=== PATIENT | male | born 1930 | race Native Hawaiian/Other Pacific Islander ===

== ENCOUNTER 2016-09-30 21:56 | Outpatient (CLI) | payer OTHER, BC ==
[2016-09-30] MEDS ORDERED: AMLO2.5T PO (22:18)
[2016-09-30] MEDS ORDERED: PANT40TA PO (22:18)
[2016-09-30] MEDS ORDERED: TIROSINT88 MCG PO (22:19)
[2016-09-30] MEDS ORDERED: CELE200C2 PO (22:19)
[2016-09-30] MEDS ORDERED: PLAVIX75 MG PO (22:19)
[2016-09-30] MEDS ORDERED: AMBIEN5 MG PO (22:20)
== END 2016-09-30 22:04 | disposition short-term general hospital (02) ==
LOC: AMB 21:56
DX: R41.82 Altered mental status, unspecified (principal); I10 Essential (primary) hypertension; R53.1 Weakness
CPT/HCPCS: A0425; A0429

== ENCOUNTER 2016-09-30 22:08 | Observation (INO) | payer OTHER, BC ==
[~2016-09-30] VITALS: Ht 172.7 cm; Wt 89.1 kg
[2016-09-30] MEDS ORDERED: PANT40TA PO (22:18)
[2016-09-30] MEDS ORDERED: AMLO2.5T PO (22:18)
[2016-09-30] MEDS ORDERED: CELE200C2 PO (22:19)
[2016-09-30] MEDS ORDERED: TIROSINT88 MCG PO (22:19)
[2016-09-30] MEDS ORDERED: PLAVIX75 MG PO (22:19)
[2016-09-30] MEDS ORDERED: AMBIEN5 MG PO (22:20)
[2016-09-30 22:32] VITALS: BP 127/102; TEMP 97.9
[2016-09-30 23:04] LABS: PLATELET COUNT 234 K/uL (142-355)
[2016-09-30 23:10] LABS: POTASSIUM 3.7 mmol/L (3.6-5.2)
[2016-10-01 03:55] VITALS: BP 158/83; TEMP 97.1; Ht 172.7 cm; Wt 89.1 kg
[2016-10-01 04:00] VITALS: BP 148/83; TEMP 98.1
[2016-10-01 08:00] VITALS: BP 122/65; TEMP 98
[2016-10-01 08:48] LABS: PLATELET COUNT 221 K/uL (142-355)
[2016-10-01 09:07] LABS: POTASSIUM 3.7 mmol/L (3.6-5.2); SODIUM 138 mmol/L (136-145)
[2016-10-01 12:00] VITALS: BP 138/96; TEMP 98.2
[2016-10-01 16:00] VITALS: BP 164/64; TEMP 97.4
== END 2016-10-01 16:27 | disposition home or self-care (01) ==
LOC: ED 22:08 → MED/SURG 10-01 00:55
PROVIDERS: Emergency Medicine; ADMIT Emergency Medicine
DX: G45.8 Other transient cerebral ischemic attacks and related syndromes (principal); R41.82 Altered mental status, unspecified; I10 Essential (primary) hypertension; Z86.73 Personal history of transient ischemic attack (TIA), and cerebral infarction without residual deficits; M15.8 Other polyosteoarthritis; E03.8 Other specified hypothyroidism; R41.0 Disorientation, unspecified; I45.19 Other right bundle-branch block; I51.7 Cardiomegaly
CPT/HCPCS: 36415; 80053; 81000; 82550; 83735; 84439; 84443; 84484; 85027; 87804; 96374; 99220; 99284; G0378; J1650; J1940

== ENCOUNTER 2017-10-28 17:21 | Observation (INO) | payer OTHER, BC ==
[~2017-10-28] VITALS: Ht 172.7 cm; Wt 85.9 kg
[~2017-10-28 17:21] MED LIST: AMBIEN5 MG PO; AMLO2.5T PO; CELE200C2 PO; PANT40TA PO; PLAVIX75 MG PO; TIROSINT88 MCG PO
--- NOTE | 2017-10-28 18:36 | NUR ---
IV STARTED IN R AC WITH A 20G X 1 ATTEMPT. LABS DRAWN. SL IN PLACE AND FLUSHED WITH NS.
[2017-10-28 18:44] LABS: PLATELET COUNT 267 K/uL (142-355)
[2017-10-28 19:17] VITALS: BP 177/73; TEMP 98.2; Ht 172.7 cm; Wt 85.9 kg
[2017-10-28 20:00] VITALS: BP 147/81; TEMP 97.9
[2017-10-28 21:43] LABS: POTASSIUM 3.6 mmol/L (3.6-5.2)
[2017-10-28 21:51] LABS: PARTIAL THROMBOPLASTIN TIME 25.4 SECONDS (24.5-33.6)
[2017-10-29] VITALS (9 sets, daily range): BP systolic 124–157; BP diastolic 54–75; TEMP 97.8–99
[2017-10-29] MEDS ORDERED: TRAZ50TA36 PO (06:15)
--- NOTE | 2017-10-29 08:29 | NUR ---
DR. LAGUNAS AT BEDSIDE TO SEE PT
--- NOTE | 2017-10-29 08:59 | NUR ---
PT GONE TO OR VIA BED PER OR STAFF.
--- NOTE | 2017-10-29 11:10 | NUR ---
RECEIVED REPORT FROM OR STAFF PANCHO DANIEL RN
--- NOTE | 2017-10-29 11:20 | NUR ---
PT ARRIVED BACK TO FLOOR FROM OR VIA BED PER OR STAFF. PT IS ALERT, ORIENTED BUT DROWSY. FAMILY IS AT THE BEDSIDE. VITAL SIGNS ARE STABLE: TEMP 98.4, PULSE 58, RR - 16, BP - 143/69, O2 SAT - 95%. WILL CONTINUE TO MONITOR.
--- NOTE | 2017-10-29 13:45 | NUR ---
20G IV TO THE RAC D/C AT THIS TIME WITH TIP INTACT. DISCHARGE INSTRUCTIONS WERE GIVEN TO PT AND PT'S FAMILY MEMBERS. PT AND FAMILY VERBALIZED UNDERSTANDING. PT WAS D/C VIA WHEELCHAIR AT THIS TIME.
== END 2017-10-29 13:45 | disposition home or self-care (01) ==
LOC: MED/SURG 17:21
PROVIDERS: ADMIT Student in an Organized Health Care Education/Training Program
PROC: 0HB7XZZ Excision of Abdomen Skin, External Approach (ICD-10-PCS; principal; 2017-10-29)
DX: L72.3 Sebaceous cyst (principal); Z79.01 Long term (current) use of anticoagulants
CPT/HCPCS: 80053; 85027; 85610; 85730; 96365; 96366; 99220; C1729; G0378; G0379; J0132; J1170; J2001; J2250; J2270; J2405; J2704; J3010; S0028

== ENCOUNTER 2017-11-09 19:09 | Emergency (ER) | payer OTHER, BC ==
[~2017-11-09] VITALS: Ht 172.7 cm; Wt 85.7 kg
[~2017-11-09 19:09] MED LIST changes: +TRAZ50TA36 PO
[2017-11-09 20:20] VITALS: BP 159/83; TEMP 98.7
== END 2017-11-09 20:21 | disposition home or self-care (01) ==
LOC: EDP 19:09 → ED 19:09 → EDP 20:21
PROC: 0HQ7XZZ Repair Abdomen Skin, External Approach (ICD-10-PCS; principal; 2017-11-09)
DX: L76.22 Postprocedural hemorrhage of skin and subcutaneous tissue following other procedure (principal)
CPT/HCPCS: 99283

== ENCOUNTER 2017-11-11 16:23 | Emergency (ER) | payer OTHER, BC ==
[~2017-11-11] VITALS: Ht 172.7 cm; Wt 85.7 kg
[2017-11-11 17:23] LABS: PLATELET COUNT 215 K/uL (142-355)
[2017-11-11 17:30] LABS: POTASSIUM 3.5 mmol/L (3.6-5.2)
[2017-11-11 17:44] LABS: PARTIAL THROMBOPLASTIN TIME 21.5 SECONDS (24.5-33.6)
[2017-11-11 20:18] VITALS: BP 145/94; TEMP 98.1
== END 2017-11-11 20:22 | disposition home or self-care (01) ==
LOC: ED 16:23
PROVIDERS: Specialist
DX: L76.22 Postprocedural hemorrhage of skin and subcutaneous tissue following other procedure (principal); Z79.02 Long term (current) use of antithrombotics/antiplatelets; Z98.890 Other specified postprocedural states; L76.32 Postprocedural hematoma of skin and subcutaneous tissue following other procedure
CPT/HCPCS: 36415; 80053; 83605; 85002; 85027; 85610; 85651; 85730; 96360; 96365; 96366; 99284; Q9963

== ENCOUNTER 2018-04-12 09:19 | Outpatient (CLI) | payer OTHER, BC ==
[2018-04-12 09:45] LABS: PLATELET COUNT 242 K/uL (142-355)
== END 2018-04-12 23:47 | disposition home or self-care (01) ==
LOC: LABW 09:19 → US 10:00 → LABW 23:47
PROVIDERS: Internal Medicine
DX: D50.8 Other iron deficiency anemias (principal); Z00.00 Encounter for general adult medical examination without abnormal findings; E03.8 Other specified hypothyroidism; Z79.899 Other long term (current) drug therapy
CPT/HCPCS: 36415; 80053; 80061; 81000; 82728; 83540; 83550; 84439; 84443; 85027

== ENCOUNTER 2018-04-15 09:05 | Outpatient (CLI) | payer OTHER, BC | END 2018-04-15 19:21 | disposition home or self-care (01) | LOC: US 09:05 | DX: Z13.89 Encounter for screening for other disorder (principal) ==

== ENCOUNTER 2018-11-07 08:52 | Outpatient (CLI) | payer OTHER, BC ==
[2018-11-07 09:14] LABS: PLATELET COUNT 201 K/uL (142-355)
[2018-11-07 09:43] LABS: POTASSIUM 3.9 mmol/L (3.6-5.2)
== END 2018-11-07 19:20 | disposition home or self-care (01) ==
LOC: LABW 08:52
PROVIDERS: Internal Medicine
DX: I10 Essential (primary) hypertension (principal); E03.9 Hypothyroidism, unspecified
CPT/HCPCS: 36415; 80053; 80061; 81000; 84439; 84443; 85027

== ENCOUNTER 2018-11-18 09:46 | Emergency (ER) | payer OTHER, BC ==
[~2018-11-18] VITALS: Ht 160 cm; Wt 81.2 kg
[2018-11-18 10:10] VITALS: TEMP 97.3
[2018-11-18 11:27] LABS: PLATELET COUNT 209 K/uL (142-355)
[2018-11-18 11:39] LABS: SODIUM 141 mmol/L (136-145)
[2018-11-18 13:18] VITALS: BP 110/48
== END 2018-11-18 13:18 | disposition home or self-care (01) ==
LOC: ED 09:46
PROVIDERS: Emergency Medicine
DX: I95.1 Orthostatic hypotension (principal); R00.1 Bradycardia, unspecified; I45.19 Other right bundle-branch block
CPT/HCPCS: 36415; 80053; 81000; 82550; 82553; 84484; 85027; 93005; 99283